=== PATIENT | male | born 1950 | race Caucasian/White ===

== ENCOUNTER 2019-09-05 02:10 | Emergency (ER) | payer SELFPAY ==
[~2019-09-05] VITALS: Ht 172.7 cm; Wt 73.6 kg
[2019-09-05 02:10] VITALS: BP 158/97
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
[2019-09-05 03:31] LABS: BILIRUBIN,URINE NEGATIVE (NEG); CLARITY,URINE CLEAR; COLOR,URINE YELLOW; NITRITE,URINE NEGATIVE (NEG); PH,URINE 6.5; PROTEIN,URINE NEGATIVE (NEG-TRACE); UROBILINOGEN,URINE 0.2 mg/dL (0.2 mg/dL)
[2019-09-05 03:42] LABS: BARBITURATES NEG (NEG); BENZODIAZEPINES NEG (NEG); CANNABINOIDS POS (NEG); COCAINE NEG (NEG); METHADONE NEG (NEG); OPIATES POS (NEG); PHENCYCLIDINE NEG (NEG)
[2019-09-05 03:43] LABS: BACTERIA,URINE 0 /HPF (0-FEW); SQUAMOUS EPITHELIAL CELL,UR OCC /LPF
--- NOTE | 2019-09-05 03:45 | RAD ---
CT CERVICAL SPINE WO CONTRAST, CT LUMBAR SPINE WO CONTRAST dated 09/05/2019 3:08 AM Indication: Pain after injury. Neck and back pain Comparison: No comparison is available. Technique: Contiguous axial imaging of the cervical and lumbar spine performed with thin cut coronal and sagittal reconstruction. One or more of the following individualized dose reduction techniques were utilized for this examination: 1. Automated exposure control 2. Adjustment of the mA and/or kV according to patient size 3. Use of iterative reconstruction technique Findings: Images of the cervical spine show slight retrolisthesis of C5 on C6 and C6 on C7. Sagittal alignment is otherwise anatomic. Vertebral body heights are maintained. No prevertebral soft tissue swelling. Posterior elements are intact. No evidence of fracture. Mild to moderate hypertrophic changes of the superior and inferior endplates throughout. There is moderate disc space narrowing at C3-C4, C5-C6 and C6-C7. Multilevel uncovertebral spurring and facet arthropathy. There is moderate bilateral foraminal stenosis at C6-C7 with mild bilateral foraminal stenosis at C5-C6. Moderate left foraminal stenosis at C3-C4. There is mild central stenosis at C5-C6 and C6-C7. No apparent focal disc herniation. Visualized soft tissue structures unremarkable. Limited images of lung apices are clear. Images of the lumbar spine show normal sagittal alignment. Vertebral body heights are maintained. Mild endplate hypertrophic changes throughout. Posterior elements are intact. No evidence of fracture. Multilevel facet arthropathy. There is mild central stenosis at L3-L4 and L4-L5 with mild bilateral foraminal narrowing. There is mild central canal narrowing at C3-C4 and C4-C5. Images of the retroperitoneum show no significant abnormality. Scattered diverticula throughout the colon. IMPRESSION: 1. No evidence of fracture or malalignment. 2. Mild to moderate multilevel cervical and lumbar spondylosis. Electronically signed by: Hu Schulte MD (09/05/2019 3:42 AM) [id number]
[2019-09-05 03:47] LABS: AMPHETAMINE/METHAMPHETAMINE NEG (NEG)
[2019-09-05] MEDS ORDERED: CYCL10TA2 PO (04:04)
== END 2019-09-05 04:50 | disposition home or self-care (01) ==
LOC: ER 02:10
DX: G89.11 Acute pain due to trauma (principal); M54.5 Low back pain; F41.9 Anxiety disorder, unspecified; F12.10 Cannabis abuse, uncomplicated; Y08.89XA Assault by other specified means, initial encounter; Y93.89 Activity, other specified; Y92.89 Other specified places as the place of occurrence of the external cause; Y99.8 Other external cause status
CPT/HCPCS: 72125; 72131; 80307; 81001; 99285